=== PATIENT | male | born 1960 | race Caucasian/White ===

== ENCOUNTER 2025-03-06 09:05 | Outpatient (CLI) | payer MEDICAID, SELFPAY ==
--- NOTE | 2025-03-06 09:08 | XR_ITS ---
FINAL REPORT CLINICAL HISTORY: right wrist pain FINDINGS: AP, oblique, and lateral views of the right wrist were obtained. There is no prior exam for comparison. There is no acute fracture or dislocation. There is mild degenerative joint disease. The soft tissues are normal. IMPRESSION: No acute osseous abnormality of the right wrist. Mild degenerative disease. Reviewed, Interpreted and Dictated by Dorothea Orantes MD Transcribed by Afia Bass Authenticated and [facility]
--- NOTE | 2025-03-06 09:08 | XR_ITS ---
FINAL REPORT CLINICAL HISTORY: left wrist pain FINDINGS: AP, oblique, and lateral views of the left wrist were obtained. There is no prior exam for comparison. There is no acute fracture or dislocation. There is mild degenerative joint disease. The soft tissues are normal. IMPRESSION: No acute osseous abnormality of the left wrist. Mild degenerative disease. Reviewed, Interpreted and Dictated by Dorothea Orantes MD Transcribed by Afia Bass Authenticated and [facility]
--- OUTSIDE RECORDS SUMMARY | 2025-03-06 09:10 | XMS_ITS | Clinical Summary ---
Author Organization [facility] Address [address] [place] [address] Phone Care Team Providers Care Pharmaceutical Compounding Supervisor Name Role Phone Bryan Anderson MD Primary Care Provider Allergies No known active allergies Social History Tobacco Use Types Packs/Day Years Used Date Smoking Tobacco: Never Assessed Sex and Gender Information Value Date Recorded Sex Assigned at Not on file Legal Sex Male 12:00 PM EDT Gender Identity Not on file Sexual Orientation Not on file Plan of Treatment Health Maintenance Due Date Last Done Comments Annual Wellness Exam 1963 Hepatitis C Screening 07/28/1979 DTaP/TDaP/Td (1 - Tdap) 1980 Cologuard 2006 FIT 2006 Sigmoidoscopy 2006 Virtual Colonography 2006 Pneumococcal Vaccine 50+ (1 of 1 - PCV) 07/28/2011 Zoster (1 of 2) 07/28/2011 Colon Cancer Screening 02/03/2019 Colonoscopy 02/03/2019 02/03/2018 COVID-19 Vaccine ( - 2024-2 6 season) 2024 Influenza Vaccine (#1) 2024 Hepatitis B Vaccine Aged Out No longe r eligible based on patient's age to complete this topic Meningococcal B Vaccine Aged Out No l onger eligible based on patient's age to complete this topic Insurance [employer] [place] MDR Care Teams Pharmaceutical Compounding Supervisor Relationship Specialty Start Date End Date Bryan Anderson MD [address] [place] [address] [place] [id number] PCP - General Family Medicine 02/28/12
--- OUTSIDE RECORDS SUMMARY | 2025-03-06 09:10 | XMS_ITS | Continuity of Care Document ---
Author Organization [facility] Address [address] [place] [address] Assessment No assessment recorded. Plan of Treatment Reminders Order Date Submit Date Provider Last Modified By Organization Details Last Modified Time Details Appointments None recorded. Lab None recorded. Referral neurologist referral 2024 025 [facility], [facility] [address], [place], [address], 15:17:35 Procedures None recorded. Surgeries None recorded. Imaging electromyog johan + nerve conduction study - bilateral arms and hands 2024 025 [facility] ([facility] [address], [place], [address], 11:55:13 Medication Orders None recorded. Patient TargetsNo targets recorded. Patient InstructionsNo instructions recorded. Reason for Referral Neurologist Referral for Inj ury caused by electrical exposure Referring Physician: Gopal Franks, Family Medicine, Encounter Date: 02/06/2025 Results Created Date Observation Date Name Description Value Unit Range Abnormal Flag Note LastModifiedBy Organization Detail LastModifiedTime 03/03/2003/03/2025 elect romyo gram + nerve condu ction study No observ ation record ed. [facility] [address], [place], [address], 03/04/2025 17:57:56 03/04/2003/03/2025 elect romyo gram + nerve condu ction study No observ ation record ed. [email or web address] (Scheduling) [address], [place], [address], 03/04/2025 12:00:06 Result Notes None recorded. Problems Name Problem SNOMED Code Status Onset Date Resolution Date Notes Provider Name and Address Organization Details Recorded Time Sepsis 12217951 Completed 10/16/2017 Crystal Jose G null, [place] - [facility] 3 08:15:24 Chest pain 15294473 Completed 04/12/2019 Cheryl Oneill RN [address], [place], [address], [place] - [facility] 2 14:24:15 Preinfarc tion syndrome 4378433 Active Crystal Jose G null, [place] - [facility] 8 08:30:15 Pneumonia 510897647 Completed 04/12/2019 Crystal Jose G [place] [facility] 08:15:19 Injury of kidney 89810717 Active Crystal Jose G [place] - [facility] 8 08:30:15 History of cardiac catheteri zation 116877333526 00 Completed 09/23/2022 Crystal Jose G [place] [facility] 3 08:15:34 Sepsis 36290698 Completed 04/12/2019 Crystal Jose G [place] [facility] 08:15:24 Chest pain 06541606 Completed 01/24/2022 Cheryl Oneill RN [address], [place], [address], [place] - [facility] 2 14:24:15 Typical angina 585556066 Active Ramses Snedegar null, [place] - [facility] 2 08:37:15 Pneumonia 105548084 Completed 09/23/2022 Crystal Jose G [place] [facility] 08:15:19 Sepsis 18504247 Completed 09/23/2022 Crystal Jose G [place] [facility] 08:15:24 Hypertens alexis disorder 72069821 Active 2016 Pallavi Cisneros APRN [address], [place], [address], [place] - [facility] 2 22:59:40 Pneumonia 309981296 Completed 201610/16/2017 Crystal Jose G [place] - [facility] 3 08:15:20 Gastroeso phageal reflux disease 750337451 Active 2016 Ramses Snedegar null[place] - [facility] 2 08:37:15 Acute injury of kidney 656843209536 70710 Completed 201710/16/2017 Ericka Torres null[place] - [facility] 8 11:41:35 Tinea profunda 081901864 Active 2019 Ramses Snedegar null[place] - [facility] 2 08:37:15 Pain in bilateral feet 187597733164 19998 Active 2021 Ramses Snedegar null[place] - [facility] 2 08:37:15 Resting tremor 06667906 Active 2021 Ramses Snedegar [place] [facility] 2 08:37:15 Hyperlipi demia 25573637 Active 2021 Ramses Snedegar [place] [facility] 2 08:37:15 Anxiety 96246645 Active 2023 China Stears null, [place] - [facility] 4 10:44:04 Hypothyro idism 36693168 Active 2024 Gopal Franks APRN [address], [place], [address], [place] - [facility] 5 10:02:04 Prediabet es 560480122 Active 2024 Gopal Franks APRN [address], [place], [address], [place] - [facility] 5 10:02:26 Problem Notes None recorded. Procedures Surgical History Date Name Laterality Status Provider Name and Address Organization Details Recorded Time 07/20/19 22 cholecystectomy completed Ramses Snedegar [place] - [facility] 07/22/2021 13:33:52 06/06/19 21 Systolic B/P less than 130 mm Hg completed Crystal Jose G [place] - [facility] 06/05/2020 08:29:10 06/06/19 21 Diastolic B/P 80-89 mm Hg completed Crystal Jose G [place] - [facility] 06/05/2020 08:29:13 04/12/19 20 Diastolic B/P greater than or equal to 90 mm Hg completed Crystal Jose G [place] - [facility] 04/12/2019 08:46:14 04/12/19 20 Systolic B/P greater than or equal to 140 mm Hg completed Crystal Jose G [place] [facility] 04/12/2019 08:46:08 03/11/20 19 Punch Biopsies, Multiple completed Sarah Mccurdy APRN [address], [place], [address], [place] [facility] 03/11/2019 13:21:21 01/24/20 18 Colonoscopy completed Cheryl Oneill RN [address], [place], [address], [place] - [facility] 08/17/2018 16:42:47 10/18/19 18 Cardiac Cath completed Rosa Toro [place] - [facility] 10/19/2017 10:18:05 Appendectomy completed Arianna Bartlett [place] - [facility] 10/26/2016 10:26:01 Shoulder joint surgery completed Arianna Bart[place] - [facility] 10/26/2016 10:26:11 Imaging Results None recorded. Procedure Notes None recorded. Medical Equipment None Reported. Allergies Allergen ID Allergen Name Allergen Category Reaction Reaction Severity Criticality Documentation Date Start Date Code Code System Note Provider Name and Address Organization Details Recorded Time 157872 Product containin g penicilli n (product) medicatio n rash Not available Not available 10/16/2017 [id number] [id number] SNOMED Rosa Toro [facility], [place] - [facility] 8 11:17:55 Medications Name Sig Start Date Stop Date Status Note LastModified by Organization Details LastModified Time cyclobenz aprine 10 mg tablet take one tablet po tid prn for muscle spams in lower back 06/05 completed Not Available Not Available Not Available Miralax 17 gram/dose oral powder take 17 gram mixed with 8 oz. water, juice, soda, coffee or tea by oral route once daily for 30 days 08/09 completed Miralax 17 gram/dos e oral powder;R ecorded Status: Recorded on: 06/11/19 16 5:17PM;U ser: gored;Es t. Completi on: 08/10/19 16 Not Available Not Available Not Available methocarb compa 500 mg tablet TAKE TWO (2) TABLETS BY ORAL ROUTE FOUR (4) TIMES PER DAY active Not Available Not Available No t Available primidone 50 mg tablet TAKE ONE HALF (1/2) TABLET EVERY DAY BY ORAL ROUTE. active Not Available Not Available No t Available prednison e 10 mg tablet 10 mg by oral route. 10/12 completed Not Available Not Available Not Available doxycycli ne hyclate 100 mg capsule Take 1 capsule every day by oral route for 30 days. 10/11 completed Not Available Not Available Not Available carvedilo l 12.5 mg tablet TAKE ONE (1) TABLET TWICE A DAY BY ORAL ROUTE FOR 90 DAYS. active Not Available Not Available No t Available ketoconaz ole 2 % shampoo APPLY TO THE AFFECTED AREA(S) LATHER LEAVE IN PLACE FOR 15 MINUTES AND THEN RINSE OFF WITH WATER BY TOPICAL ROUTE 3-5 TIMES WEEKLY 09/01 completed Not Available Not Available Not Available clindamyc in HCl 300 mg capsule Take 1 capsule twice a day by oral route for 12 days. 10/16 completed Not Available Not Available Not Available azithromy caroline 250 mg tablet 250 mg by oral route. 10/13 completed Not Available Not Available Not Available benzonata te 200 mg capsule Take 1 capsule 3 times a day by oral route for 10 days. 10/07 completed Not Available Not Available Not Available metoprolo l succinate ER 50 mg tablet,ex tended release 24 hr 50 mg by oral route. 07/10 completed Not Available Not Available Not Available hydrocodo ne 5 mg-acetam inophen 325 mg tablet TAKE ONE (1) TO TWO (2) TABLET BY MOUTH EVERY SIX (6) HOURS NEEDED FOR PAIN SCALE 1-5 09/01 completed Not Available Not Available Not Available sucralfat e 1 gram tablet TAKE ONE (1) TABLET FOUR (4) TIMES A DAY BY ORAL ROUTE BEFORE MEALS FOR 14 DAYS. completed Not Available Not Available Not Available lisinopri l 20 mg tablet TAKE ONE (1) TABLET BY MOUTH EVERY DAY active Not Available Not Available No t Available Medrol (Toño) 4 mg tablets in a dose pack take as directed for a dose pack 06/29 completed Not Available Not Available Not Available Minocin 100 mg capsule take 1 capsule (100 mg) by oral route 2 times per day for 30 days 08/09 completed Minocin 100 mg oral capsule; Prescrib e Status: Prescrib ed on: 10/13/19 16 11:15AM; User: yaw;Es t. Completi on: 01/11/20 16;Pharm acyVerif ied: 10/13/19 16 11:15AM Not Available Not Available Not Available benazepri l 20 mg-hydroc hlorothia zide 12.5 mg tablet 10/16 completed Not Available Not Available Not Available doxycycli ne monohydra te 100 mg tablet take 1 tablet (100 mg) by oral route once daily for 30 days 11/17 completed doxycycl ine monohydr ate 100 mg oral tablet;R ecorded Status: Recorded on: 10/13/19 16 2:03PM;U ser: [email or web address]; Est. Completi on: 01/11/20 16;Print ed: 10/13/19 16 Not Available Not Available Not Available triamcino lone acetonide 0.1 % topical cream APPLY A THIN LAYER TO THE AFFECTED AREA(S) BY TOPICAL ROUTE 2 TIMES PER DAY 06/29 completed Not Available Not Available Not Available Depo-Medr ol 80 mg/mL suspensio n for injection give 80 mg Depomedr ol IM 02/26 completed Not Available Not Available Not Available levothyro xine 25 mcg tablet Take 1 tablet every day by oral route for 30 days, for hypothyr oidism. 05/08 completed Not Available Not Available Not Available terbinafi ne HCl 250 mg tablet Take one capsule by mouth daily for 3 weeks 01/05 completed Not Available Not Available Not Available ceftriaxo ne 1 gram solution for injection Take 1 g by injectio n route. 10/07 completed Not Available Not Available Not Available amlodipin e 10 mg tablet 10/16 completed Not Available Not Available Not Available doxycycli ne monohydra te 100 mg capsule Take 1 capsule twice a day by oral route with meals for 30 days. 04/12 completed Not Available Not Available Not Available levothyro xine 50 mcg tablet TAKE ONE (1) TABLET BY MOUTH BY MOUTH EVERY DAY active Not Available Not Available No t Available cephalexi n 500 mg capsule TAKE ONE (1) CAPSULE TWICE A DAY BY ORAL ROUTE FOR 10 DAYS. 04/09 completed Not Available Not Available Not Available pantopraz ole 40 mg tablet,de layed release TAKE ONE (1) TABLET BY MOUTH TWICE DAILY active Not Available Not Available No t Available triamcino lone acetonide 0.1 % topical ointment APPLY ONE (1) APPLICAT ION TWICE A DAY BY TOPICAL ROUTE 02/06 completed Not Available Not Available Not Available calcipotr iene 0.005 % topical cream 07/10 completed Not Available Not Available Not Available omeprazol e 20 mg capsule,d elayed release take 1 capsule (20 mg) by oral route once daily before a meal for 30 days 09/08 completed omeprazo le 20 mg oral capsule, delayed release( DR/EC);R ecorded Status: Recorded on: 06/11/19 16 5:17PM;U ser: gored;Es t. Completi on: 09/09/19 16 Not Available Not Available Not Available mupirocin 2 % topical ointment APPLY A SMALL AMOUNT TO THE AFFECTED AREA BY TOPICAL ROUTE THREE (3) TIMES PER DAY 04/09 completed Not Available Not Available Not Available dexametha sone sodium phosphate 4 mg/mL injection solution Inject 1 mL twice a day by intramus cular route. 06/29 completed Not Available Not Available Not Available Aspir-81 mg tablet,de layed release take 1 tablet (81 mg) by oral route once daily 10/19 completed Aspir-81 81 mg oral tablet,d elayed release (DR/EC); Recorded Status: Recorded on: 06/11/19 16 9:03AM;U ser: [email or web address] Not Available Not Available Not Available ketorolac 60 mg/2 mL intramusc ular solution give 60 mg Toradol IM 09/01 completed Not Available Not Available Not Available ketoconaz ole 2 % topical cream APPLY TO THE AFFECTED AREA(S) BY TOPICAL ROUTE TWO TIMES DAILY 01/05 completed Not Available Not Available Not Available sertralin e 50 mg tablet TAKE ONE (1) TABLET EVERY DAY BY ORAL ROUTE. active Not Available Not Available No t Available Hibiclens 4 % topical liquid Apply 1 applicat ion every day by topical route as needed for 30 days. 10/16 completed Not Available Not Available Not Available naproxen 500 mg tablet Take 1 tablet every day by oral route. 12/12 completed Not Available Not Available Not Available clindamyc in phosphate 1 % topical solution APPLY A THIN LAYER TO THE AFFECTED AREA(S) BY TOPICAL ROUTE 2 TIMES PER DAY 01/05 completed Not Available Not Available Not Available guaifenes in 400 mg tablet Take 1 tablet 3 times a day by oral route. 11/17 completed Not Available Not Available Not Available rosuvasta tin 10 mg tablet TAKE ONE (1) TABLET BY MOUTH EVERY NIGHT AT BEDTIME active Not Available Not Available No t Available Vitals Date Recorded Body height Body mass index (BMI) Body weight Oxygen saturation Respiratory rate Pain severity - 0-10 verbal numeric rating [Score] - Reported Heart rate Body temperature Systolic And Diastolic Provider Name and Address Organization Details Last Updated DateTime 5 177.8 cm 32 kg/m2 905581. 1 g 98 % 18 /min 0 66 /min 98.1 [degF] 130/88 mm[Hg] Adelia Macias [place] - [facility] 5 08:16:36 Social History Question Answer Notes LastModified by Organizat ion Details LastModified Time Tobacco Smoking Status Never Smoker Arianna santos, [place] - [facility] 10/26/2016 10:25:42 Do You Have An Advance Directive? No Information not available 09/12/2018 Are You Blind Or Do You Have Difficulty Seeing? No Information not available 09/12/2018 What Is Your Level Of Caffeine Consumption? Occasional Information not available 09/12/2018 How Much Tobacco Do You Chew? None Information not available 09/12/2018 Are You Deaf Or Do You Have Serious Difficulty Hearing? No Information not available 09/12/2018 What Type Of Diet Are You Following? REGULAR Information not available 09/12/2018 Which Illicit Or Recreational Drugs Have You Used? No Information not available 09/12/2018 What Is The Highest Grade Or Level Of School You Have Completed Or The Highest Degree You Have Received? [id number] Information not available 10/07/2024 Have There Been Any Changes To Your Family Or Social Situation? No Information no t available 01/18/2024 What Is The Fluoride Status Of Your Home? Unknown Information not available 01/18/2024 Hard Of Hearing Or Deaf In One Or Both Ears? No Information not available 09/12/2018 Legally Blind In One Or Both Eyes? No Information no t available 09/12/2018 Live Alone Or With Others? With Others Information not available 09/12/2018 Do You Have A Medical Power Of Basting Machine Operator? No Information not available 01/18/2024 What Was The Date Of Your Most Recent Tobacco Screening? 04/19/2024 [email or web address] Information not available 04/19/2024 What Is Your Relationship Status? Information not available 09/12/2018 Seat Belts Used Routinely Yes Information not available 09/12/2018 Are You Sexually Active? Yes Information not available 09/23/2022 Smoke Alarm In Home Yes Information not available 09/12/2018 Do You Have Smoke And Carbon Monoxide Detectors In Your Home? Yes Information not available 01/18/2024 General Stress Level Low Information not available 09/12/2018 Do You Use Sunscreen Routinely? No Information not available 09/12/2018 Has Tobacco Cessation Counseling Been Provided? Yes Information not available 09/23/2022 On What Date Was Tobacco Cessation Counseling Provided? 05/18/2023 Information not available 05/18/2023 Do You Have Difficulty Walking Or Climbing Stairs? No Information not available 09/12/2018 Sex: Male Functional Status Question Answer Note LastModified by Organizat ion Details LastModified Time Do you or have you ever used smokeless tobacco? Never used smokeless tobacco Information not available 05/28/2019 Are you currently employed? Yes Information not available 09/12/2018 Do you have transportation difficulties? No Information not available 05/18/2023 Are you able to care for yourself independently? Yes Information not available 09/12/2018 Do you have difficulty dressing, bathing, grooming, or toileting? No Information not available 09/12/2018 Do you or have you ever used e-cigarettes or vape? Never used electronic cigarettes Information not available 05/28/2019 What is your exercise level? None Information not available 09/12/2018 Do you use any illicit or recreational drugs? No Information not available 06/04/2021 Do you or have you ever used any other forms of tobacco or nicotine? No Information not available 06/04/2021 What is your level of alcohol consumption? None Information not available 10/07/2024 Are you able to walk independently without assistance or assistive devices? YESWOREST Information not available 09/12/2018 Do you have difficulty doing errands alone? No Information not available 09/12/2018 What is your occupation? self employed Information not available 09/12/2018 Mental Status Question Answer Note LastModified by Organizat ion Details LastModified Time Do you feel stressed (tense, restless, nervous, or anxious, or unable to sleep at night)? [id number] Information not available 10/07/2024 Do you have difficulty concentrating, remembering or making decisions? No Information no t available 09/12/2018 Family History Relationship Description Onset Age of this Age Resolved Age Notes LastModified by Organization Details LastModified Time Mother Diabetes mellitus [email or web address] Not available 10/26 10:25:26 Father Cerebrovascu lar accident [email or web address] Not available 10:25:35 Sister Lupus erythematosu s [email or web address] Not available 2017 09:46:02 Unspecified Relation Heart disease [email or web address] Not available 2017 09:46:18 Medical History No medical history recorded. Immunizations Vaccine Type Date Status Note Provider Name and Address Organization Details Recorded Time Influenza, split virus, quadrivalent, preservative 02/14/20 17 cancelled patient objection Not Available [facility] 04/06/2019 03:54:47 zoster recombinant 01/18/20 24 cancelled patient objection Libertyyisellucio BrownERIN núñez [address], [place], [address], [place] - [facility] 01/18/2024 11:26:05 SARS-COV-2 (COVID-19) vaccine, UNSPECIFIED 05/27/19 21 completed Rosa Vega null, [place] - [facility] 05/18/2023 08:18:27 COVID-19 vaccine, vector-nr, [id number], PF, 0.5 mL 05/27/19 21 completed Rosa Figwhitneys null, [place] - [facility] 05/18/2023 08:18:27 Past Encounters Encounter ID Performer Location Encounter Start Date Encounter Closed Date Diagnosis/Indication Diagnosis SNOMED-CT Code Diagnosis ICD10 Code Diagnosis IMO Codes Diagnosis Note [id number] Gopal Franks APRN [address] [address] 02/06/2025 07:57:49 02/06/2025 09:10:59 Injury caused by electrical exposure 447790944 T75.4XXA [id number] referral to neuroncsif worsen or no improvment return Health Concerns Section Related Observation LastModified by Organization Detai ls LastModified Time None Recorded Concern Status LastModified by Organization Details LastModified Time None Recorded Payers Encounter Date Sequence Insurance Name Policy Number Policy Hummel Covered Member ID Hummel Member ID Guarantor Name 02/06/[address] [place] [address] (MEDICAID REPLACEMENT - HMO) Gautam Chowdhury [id number] [facility] Notes Date Note Type Note Provider Name and Address Organization Details Recorded Time 02/06/2025 text/html ROS as noted in the HPI 64 yr old male presents for concerns for his right hand. He was shocked about 3 months ago- he was evaluated in er at the time. His right hand looks more rough than the left, nails are thick and yellow and it swells from time to time. was seen in er after event. pt states pains shoot though hand sometimes. Gopal Franks APRN [address], [place], [address], [facility] - [facility] 02/06/2025 16:11:42
--- OUTSIDE RECORDS SUMMARY | 2025-03-06 09:10 | XMS_ITS | Data Portability ---
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 [facility] 8 08:30:15 History of cardiac catheteri zation 870819535560 00 Completed 09/23/2022 Crystal Jose G [place] - [facility] 3 08:15:34 Sepsis 79498495 Completed 04/12/2019 Crystal Jose G null[place] - [facility] 3 08:15:24 Chest pain 43071232 Completed 01/24/2022 Cheryl Oneill RN [address], [place], [address], [place] [facility] 2 14:24:15 Typical angina 946912294 Active Ramses Snedegar null, [place] - [facility] 2 08:37:15 Pneumonia 981052746 Completed 09/23/2022 Crystal Jose G [place] - [facility] 3 08:15:19 Sepsis 75718519 Completed 09/23/2022 Crystal Jose G [place] [facility] 3 08:15:24 Hypertens alexis disorder 42514936 Active 2016 Pallavi Cisneros APRN [address], [place], [address], [place] [facility] 2 22:59:40 Pneumonia 976716327 Completed 201610/16/2017 Crystal Jose G [place] - [facility] 3 08:15:20 Gastroeso phageal reflux disease 423407834 Active 2016 Ramses Snedegar null[place] - [facility] 2 08:37:15 Acute injury of kidney 791583630209 95786 Completed 201710/16/2017 Ericka Torres [place] - [facility] 8 11:41:35 Tinea profunda 428236502 Active 2019 Ramses Snedegar [place] - [facility] 2 08:37:15 Pain in bilateral feet 771402222348 49701 Active 2021 Ramses Snedegar [place] [facility] 2 08:37:15 Resting tremor 52544934 Active 2021 Ramses Snedeg[place] [facility] 2 08:37:15 Hyperlipi demia 58621242 Active 2021 Ramses Snedeg[place] [facility] 2 08:37:15 Anxiety 36268789 Active 2023 China Stears [place] - [facility] 4 10:44:04 Hypothyro idism 72702252 Active 2024 Libertybrenden Franks, MECHANICAL SYSTEM TECHNICIAN [address], [place], [address], [place] - [facility] 5 10:02:04 Prediabet es 903412082 Active 2024 Libertyyisellucio Tiny, MECHANICAL SYSTEM TECHNICIAN [address], [place], [address], [place] [facility] 5 10:02:26 Problem Notes None recorded. Procedures Surgical History Date Name Laterality Status Provider Name and Address Organization Details Recorded Time 07/20/19 22 cholecystectomy completed Rasmes Snedegar [place] - [facility] 07/22/2021 13:33:52 06/06/19 [...] Crystal Jose G [place] - [facility] 04/12/2019 08:46:03/11/20 19 Punch Biopsies, Multiple completed Sarah Mccurdy APRN [address], [place], [address], [facility] - [facility] 03/11/2019 13:21:21 01/24/20 18 Colonoscopy completed Cheryl Oneill RN [address], [place], [address], [facility] - [facility] 08/17/2018 16:42:47 10/18/19 18 Cardiac Cath completed Rosa Toro [place] - [facility] 10/19/2017 10:18:05 Appendectomy completed Arianna Bartlett [facility] 10/26/2016 10:26:01 Shoulder joint surgery completed Arianna Bartlett [facility] 10/26/2016 10:26:11 Imaging Results None recorded. Procedure Notes None recorded. Medical Equipment None Reported. Allergies Allergen ID Allergen Name Allergen Category Reaction Reaction Severity Criticality Documentation Date Start Date Code Code System Note Provider Name and Address Organization Details Recorded Time 593397 Product containin g penicilli n (product) medicatio n rash Not available Not available 10/16/2017 71408 8001 SNOMED Rosa Toro [facility], [place] [facility] 11:17:55 Medications Name Sig Start Date [...] Prescrib ed on: 10/13/19 16 11:15AM; User: Anai hooks Completroberto on: 01/11/20 16;Pharm acyVerif ied: 10/13/19 16 [...] Status: Recorded on: 10/13/19 16 2:03PM;U ser: [facility]; Est. Completi on: 01/11/20 16;Print ed: 10/13/19 [...] le 20 mg oral capsule, delayed release( /EC);R ecorded Status: Recorded on: 06/11/19 16 5:17PM;U [...] Aspir-81 81 mg oral tablet,d elayed release (/EC); Recorded Status: Recorded on: 06/11/19 16 9:03AM;U [...] height Body mass index (BMI) Body weight Heart rate Oxygen saturation Respiratory rate Pain severity - 0-10 verbal numeric rating [Score] - Reported Systolic And Diastolic Provider Name and Address Organization Details Last Updated DateTime 5 177.8 cm 31.7 kg/m2 601180. 91 g 59 /min 96 % 18 /min 0 152/90 mm[Hg] Adelia Macias [place] - [facility] 5 08:29:33 Date Recorded Body height Body mass index (BMI) Body weight Heart rate Oxygen saturation Respiratory rate Body temperature Systolic And Diastolic Provider Name and Address Organization Details Last Updated DateTime 5 177.8 cm 30.6 kg/m2 81998.1 7 g 52 /min 98 % 18 /min 98.1 [degF] 148/84 mm[Hg] China Stears [place] - [facility] 5 08:50:33 Date Recorded Body height Body mass index (BMI) Body weight Heart rate Oxygen saturation Respiratory rate Body temperature Systolic And Diastolic Provider Name and Address Organization Details Last Updated DateTime 4 177.8 cm 29.6 kg/m2 46135.8 3 g 56 /min 95 % 18 /min 97.8 [degF] 178/86 mm[Hg] China Stears [place] - [facility] 4 10:41:27 Date Recorded Body height Body mass index (BMI) Body weight Oxygen saturation Respiratory rate Pain severity - 0-10 verbal numeric rating [Score] - Reported Heart rate Body temperature Systolic And Diastolic Provider Name and Address Organization Details Last Updated DateTime 5 177.8 cm 32 kg/m2 318235. 1 g 98 % 18 /min 0 66 /min 98.1 [degF] 130/88 mm[Hg] Adelia Macias [place] - [facility] 5 08:16:36 Date Recorded Body height Provider Name an d Address Organization Details Last Updated DateTime 02/08/2024 177.8 cm Adelia Maicas [place] - [facility] 1 04/09/2023 08:54:17 Social History Question Answer Notes LastModified by Organizat ion Details LastModified Time Tobacco Smoking Status Never Smoker Arianna Simmonsnery [place], [place] - [facility] 10/26/2016 10:25:42 Do [...] Or The Highest Degree You Have Received? [id number] Information not available 10/07/2024 Have There Been [...] Do You Have A Medical Power Of Material Worker? No Information not available 01/18/2024 What Was [...] anxious, or unable to sleep at night)? [id number] Information not available 10/07/2024 Do you have difficulty concentrating, remembering or making decisions? No Information no t available 09/12/2018 Family History Relationship Description Onset Age of this Age Resolved Age Notes LastModified by Organization Details LastModified Time Mother Diabetes mellitus [email or web address] Not available 10/26 10:25:26 Father Cerebrovascu lar accident [email or web address] Not available 10:25:35 Sister Lupus erythematosu s [email or web address] Not available 2017 09:46:02 Unspecified Relation Heart disease [email or web address] Not available 2017 09:46:18 Medical History No medical history recorded. Immunizations Vaccine Type Date Status Note Provider Name and Address Organization Details Recorded Time Influenza, split virus, quadrivalent, preservative 02/14/20 17 cancelled patient objection Not Available [facility] 04/06/2019 03:54:47 zoster recombinant 01/18/20 24 cancelled patient objection Gopal Franks, MECHANICAL SYSTEM TECHNICIAN [address], [place], [address], [place] - [facility] 01/18/2024 11:26:05 SARS-COV-2 (COVID-19) vaccine, UNSPECIFIED 05/27/19 21 completed Rosa Vega null, [place] - [facility] 05/18/2023 08:18:27 COVID-19 vaccine, vector-nr, rS-Ad26, PF, 0.5 mL 05/27/19 21 completed Rosa Vega null, [place] - [facility] 05/18/2023 08:18:27 Past Encounters Encounter ID Performer Location Encounter Start Date Encounter Closed Date Diagnosis/Indication Diagnosis SNOMED-CT Code Diagnosis ICD10 Code Diagnosis IMO Codes Diagnosis Note [id number] Diego Anderson MD Formerly [facility] [address] [place] [address] 10/26/2016 10:04:33 10/26/2016 11:08:54 Body mass index 30+ - obesity 762536181 Z68.39 Pneumonia 068769868 J18. 9 Hypertensive disorder 38 660336 I10 [id number] Ericka Torres [address] [place] [address] 02/13/2017 11:23:39 02/13/2017 12:15:08 Vaccine declined by patient 9367057406 02 Z28.21 Cellulitis 106925107 L03 .90 [id number] Erickadayna Torres [address] [place] [address] 10/16/2017 11:11:37 10/16/2017 12:15:39 Hypertensive disorder 69684893 I10 Chest pain 82605036 R07. 9 Psoriasis 3331853 L40.9 Solitary n odule of lung 178856322 R91.1 Large prostate 836261738 N40.0 [id number] Ericka Torres [address] [place] [address] 10/19/2017 10:12:26 10/19/2017 11:49:23 Hyperglycemia 54553878 R73.9 Steatotic liver disease 061739384 K76.0 Liver enzy mes level above reference range 368585448 R74.8 Screening for malignant neoplasm of prostate 911216154 Z12.5 Solitary n odule of lung 793226793 R91.1 Large prostate 713621949 N40.0 Hypertensive disorder 38 263673 I10 History of cardiac catheterization 6670838934 9100 Z98.210 [id number] Sarah Mccurdy APRN [address] [place] [address] 09/12/2018 09:08:12 09/12/2018 10:12:24 Folliculitis 80258521 L73.9 will re-evaluat e in 4 months on follow up for improvemen t. Patient encouraged to avoid picking the areas [id number] Ericka Torres [address] [place] [address] 10/11/2018 09:47:30 10/11/2018 12:05:24 Hypertensive disorder 67118614 I10 Fatigue 41127243 R53.83 [id number] Sarah Mccurdy MECHANICAL SYSTEM TECHNICIAN [address] [place] [address] 01/15/2019 07:47:18 01/15/2019 08:51:21 Folliculitis 48044805 L73.9 Continues to clinically resemble folliculit is/acne - patient relays treatment only temporaril y resolved issues and then will become worse again. Complete a 4 mm punch on posterior neck and right arm. [id number] Sarah Mccurdy MECHANICAL SYSTEM TECHNICIAN [address] [place] [address] 03/11/2019 12:30:45 03/11/2019 13:24:09 Eruption 327124913 R21 [id number] Sarah Mccurdy MECHANICAL SYSTEM TECHNICIAN [address] [place] [address] 03/26/2019 08:36:05 03/26/2019 09:07:18 Tinea profunda 915099522 B35.8 patient prefers to not have lab work completed AST ALT WNL September 2018 [id number] Ericka Torres[address] [place] [address] 04/12/2019 08:25:27 04/12/2019 09:26:13 Hypertensive disorder 44004623 I10 Gastroesop hageal reflux disease 680207868 K21.9 Body mass index 30+ - obesity 319732267 Z68.31 Cough 46901064 R05 Tinea profunda 000770939 B35.8 Fatigue 66164166 R53.83 Screening for cardiovascular system disease 017441158 Z13.6 Screening for malignant neoplasm of prostate 694272277 Z12.5 [id number] Alessandra Reddy [facility] [address] [place] [address] 05/09/2019 09:55:33 05/09/2019 11:33:29 Upper respiratory infection 68133194 J06.9 [id number] Sarah Mccurdy MECHANICAL SYSTEM TECHNICIAN [address] [place] [address] 05/28/2019 08:16:24 05/28/2019 10:06:06 Tinea profunda 238615960 B35.8 Resolved with treatment Continue Ketoconazo le shampoo and cream PRN [id number] Alessandra Reddy [address] [place] [address] 01/06/2020 14:56:18 01/06/2020 15:47:38 Low back pain 178236970 M54.5 Pain of hip region 92291 002 M25.113 [id number] Ericka Torres[address] [place] [address] 06/05/2020 08:15:12 06/05/2020 09:26:57 Hypertensive disorder 08701755 I10 stable Gastroesop hageal reflux disease 977622358 K21.9 stable Body mass index 30+ - obesity 244711556 Z68.30 Screening for malignant neoplasm of prostate 846247619 Z12.5 Screening for cardiovascular system disease 030698840 Z13.6 Tinea profunda 694889915 B35.8 stable- improved [id number] Pallavi Cisneros [address] [place] [address] 06/04/2021 15:21:08 06/04/2021 16:43:09 Gastroesophageal reflux disease 349300402 K21.9 Hypertensive disorder 38 107672 I10 Hyperlipidemia 58305440 E78.5 Resting tremor 60528579 G25.2 Screening for malignant neoplasm of prostate 547158928 Z12.5 Pain in bi lateral feet 1108852537 7616667 M79.671 M79.541 [id number] Alessandra Reddy [address] [place] [address] 07/08/2021 09:44:28 07/08/2021 10:31:27 Injury of shoulder region 311141305 S49.91XD pt had trauma to the area and surgery in 1993, it has alsways bothered him but it has gotten worse the past 2 weeks with increased pain and decreased movement [id number] Pallavi Cisneros [address] [place] [address] 09/27/2021 08:24:03 09/27/2021 09:52:47 Body mass index 30+ - obesity 218182414 Z68.31 Obesity 087174388 E66.3 Hypertensive disorder 38 263910 I10 Prediabetes 022151945 R7 3.03 [id number] Alessandra Reddy [address] [place] [address] 01/11/2022 15:44:18 01/11/2022 16:47:52 Pruritic rash 79955123 L28.2 Hypertensive disorder 38 042041 I10 BP controlled today 130/76 [id number] Adelia Babcock [address] [place] [address] 08/17/2022 10:11:14 08/17/2022 10:42:16 Hypertensive disorder 37098028 I10 Gastroesop hageal reflux disease 944247921 K21.9 Hyperlipidemia 23828282 E78.5 [id number] Adelia Babcock [address] [place] [address] 09/23/2022 08:09:49 09/23/2022 08:44:04 Resting tremor 53958980 G25.2 Hypertensive disorder 38 757780 I10 Body mass index 30+ - obesity 477010524 Z68.30 Obesity 493864191 E66.9 [id number] Aidan Bond MD [address] [place] [address] 12/12/2022 10:27:54 12/12/2022 11:05:00 Abdominal pain 13824488 R10.9 [id number] Aidan Bond MD [address] [place] [address] 05/18/2023 08:13:23 05/18/2023 08:29:09 Gastroesophageal reflux disease 393162467 K21.9 Hypertensive disorder 38 521796 I10 Hyperlipidemia 90423703 E78.5 [id number] Gopal Franks [address] [address] 01/18/2024 10:18:00 01/18/2024 11:20:18 Hypertensive disorder 82071442 I10 Hyperlipidemia 03981159 E78.5 Gastroesop hageal reflux disease 697664575 K21.9 Resting tremor 93070564 G25.2 send to neurology to r/o other causes for tremors Body mass index 25-29 - overweight 747927060 Z68.29 29.6 Overweight 356432417 E66 .[address] vaccination declined 6203877695 102 Z28.20 Infection of big toe 309 979637 L08.9 if worsen or no improvemen t return Depressive disorder 3548 9007 F32.A [id number] [facility] [place] [address] 02/08/2024 08:20:36 02/08/2024 08:38:17 Essential hypertension 01223914 I10 [id number] [facility] [place] [address] 04/19/2024 08:16:15 04/19/2024 09:10:56 Hypothyroidism 81777728 E03.9 labs Prediabetes 411694134 R7 3.03 labs [id number] [place] [address] 10/07/2024 08:25:34 10/07/2024 09:22:53 Hypothyroidism 86183149 E03.9 labs and meds Prediabetes 882352603 R7 3.03 labs Hypertensive disorder 38 666628 I10 labs and med refill Hyperlipidemia 57289289 E78.5 med refilllabs Gastroesop hageal reflux disease 360224861 K21.9 med refill Depressive disorder 3623 4297 F32.A labs Resting tremor 15119542 G25.2 follow up with neurology [id number] [place] [address] 02/06/2025 07:57:49 02/06/2025 09:10:59 Injury caused by electrical exposure 515867659 T75.4XXA 3909454 referral to neuroncsif worsen or no improvment return Health Concerns Section Related Observation LastModified by Organization Detai ls LastModified Time None Recorded Concern Status LastModified by Organization Details LastModified Time None Recorded Advance Directives Directive N: Payers Insurance Date Sequence Insurance Name Policy Number Policy Hummel Covered Member ID Hummel Member ID Guarantor Name 02/05/2025 [id number]ID) Gautam Ray [facility] [id number] [place] R [facility] 04/19/2024 1 [employer] [facility] (MEDICAID REPLACEMENT - HMO) [id number] Ray [facility] [id number] Gautam R [facility] 02/05/2025 1 [employer] [place] (MEDICAID REPLACEMENT - HMO) [facility] [facility] [id number] Gautam R [facility] 04/19/2024 1 [employer] [place] (MEDICAID REPLACEMENT - HMO) [place] Ray [facility] [id number] [place] R [facility] 10/16/2017 1 *SELF PAY* Bermudez matthew Malave [facility] Notes Date Note Type Note Provider Name and Address Organization Details Recorded Time 01/18/2024 text/html ROS as noted in the HPI 63 year old male who presents to the office today for a follow up onhypertension, gerd, anxiety, resting tremors. pt states tremors dont seem to be improved with meds anymore and at times they are worse.has concerns of pain/bleeding/red ness in right great toe x 2 weeks Gopal Franks APRN [address], [place], [address], [place] - [facility] 01/18/2024 11:27:17 02/08/2024 text/html 63 yr old male presents for lab work. Adelia [place]antos, [place] - [facility] 02/08/2024 08:56:45 04/19/2024 text/html 63 yr old male presents to have labs and check up. He needs an HbA1C and TSH, already ordered. pt states he is doing well , no issues with synthroid Gopal Franks APRN [address], [place], [address], [place] [facility] 07/04/2024 09:16:43 10/07/2024 text/html 64 year old male who presents to the office today for a follow up onhypothyroidism, hypertension, pre diabetes, hyperlipidemia- refills on medication Gopal Franks APRN [address], [place], [address], [place] [facility] 10/07/2024 09:05:40 02/06/2025 text/html ROS as noted in the [...] sometimes. Gopal Franks APRN [address], [place], [address], [place] [facility] 02/06/2025 16:11:42
== END 2025-03-06 23:59 | disposition home or self-care (01) ==
LOC: RAD 09:06
PROVIDERS: PCP Nurse Practitioner Family; Visit Provider Student in an Organized Health Care Education/Training Program
DX: M19.032 Primary osteoarthritis, left wrist (principal); M19.031 Primary osteoarthritis, right wrist
CPT/HCPCS: 73110